=== PATIENT | female | born 1960 | race Caucasian/White ===

== ENCOUNTER → 2017-02-13 | Outpatient (CLI) | payer BC ==
--- NOTE | 2017-02-16 10:22 | MM ---
Reason for exam: screening (asymptomatic). Last mammogram was performed 1 year and 6 months ago. History: Patient is postmenopausal. Physical Findings: A clinical breast exam by your physician is recommended on an annual basis and results should be correlated with mammographic findings. MG Screening Mammo w CAD Bilateral CC and MLO view(s) were taken. Prior study comparison: August 01, 2015, bilateral MG screening mammo w CAD. May 11, 2013, CAD bilateral diagnostic mammogram. The breast tissue is heterogeneously dense. This may lower the sensitivity of mammography. Benign calcifications bilateral breast. There is chronic nodularity bilaterally. There is no dominant lesion. No significant changes when compared with prior studies. ASSESSMENT: Benign, BI-RAD 2 RECOMMENDATION: Routine screening mammogram of both breasts in 1 year.
== END | disposition home or self-care (01) ==
LOC: RADMAMWWP 12:14
PROVIDERS: ATTEND Family Medicine
DX: Z12.31 Encounter for screening mammogram for malignant neoplasm of breast (principal)

== ENCOUNTER → 2018-06-29 | Outpatient (CLI) | payer BC ==
--- NOTE | 2018-06-29 15:11 | BD ---
EXAMINATION TYPE: Axial Bone Density DATE OF EXAM: 06/29/2018 COMPARISON: 2011 CLINICAL HISTORY: Osteopenia and 89.9 Height: 5'2 Weight: 184 FRAX RISK QUESTIONS: Secondary Osteoporosis: 3. Menopause before 45: y RISK FACTORS HISTORY OF: Postmenopausal woman: y MEDICATIONS: Thyroid Medications: Which medication: Levothyroxine How Lon years Additional Medications: cholesterols Additional History: EXAM MEASUREMENTS: Bone mineral densitometry was performed using the N-1-1 System. Bone mineral density as measured about the Lumbar spine is: ----- L1-L4(G/cm2): 1.061 T Score Values are as follows: ----- L2: -1.6 ----- L3: -0.7 ----- L4: -1.2 ----- L1-L4: -1.0 Bone mineral density has: Decreased -9.4% since study of: 05/03/2012 Bone mineral density about the R hip (g/cm2): 0.898 Bone mineral density about the L hip (g/cm2): 0.969 T Score values are as follows: -----R Neck: -1.0 -----L Neck: -0.5 -----R Total:0.1 -----L Total: 0.5 Bone mineral density has: Increased 3.8% since study of: 05/03/2012 IMPRESSION: Osteopenia (T Score between -2.5 and -1). There is slightly increased risk of fracture and the patient may be considered for treatment. Re-Screen 2-5 years. NOTE: T-SCORE=SD OF THE YOUNG ADULT MEAN.
--- NOTE | 2018-06-30 12:02 | MM ---
Reason for exam: screening (asymptomatic). Last mammogram was performed 1 year and 4 months ago. History: Patient is postmenopausal. Physical Findings: A clinical breast exam by your physician is recommended on an annual basis and results should be correlated with mammographic findings. MG Screening Mammo w CAD Bilateral CC and MLO view(s) were taken. Prior study comparison: February 13, 2017, bilateral MG screening mammo w CAD. August 01, 2015, bilateral MG screening mammo w CAD. The breast tissue is heterogeneously dense. This may lower the sensitivity of mammography. There are benign appearing regional, round calcifications bilaterally. There is no discrete abnormality. ASSESSMENT: Benign, BI-RAD 2 RECOMMENDATION: Routine screening mammogram of both breasts in 1 year.
== END ==
LOC: RADMAMWWP 06:40
PROVIDERS: ATTEND Obstetrics & Gynecology
DX: Z12.31 Encounter for screening mammogram for malignant neoplasm of breast (principal); M85.80 Other specified disorders of bone density and structure, unspecified site
CPT/HCPCS: 77067; 77080

== ENCOUNTER → 2019-06-24 | Outpatient (CLI) | payer OTHER ==
--- NOTE | 2019-06-24 10:19 | XR ---
EXAMINATION TYPE: XR cervical spine comp DATE OF EXAM: 06/24/2019 TECHNIQUE: Frontal, lateral, oblique, swimmers, and open mouth view of the cervical spine are obtaine d. HISTORY: M54.81 COMPARISON: CT neck from 2009 FINDINGS: The cervical spine is visualized in its entirety from C1 thru the mid C7 level, it is sati sfactory in alignment without evidence of acute fracture or dislocation. Suboptimal evaluation of C7 -T1 disc space despite attempted swimmer's view due to osseous overlap. The pre-vertebral soft tissue appears within normal limits. The C1-C2 articulation is within normal limits on the open mouth view . Visualized vertebral body heights and disc space heights are maintained. The oblique images are wi thin normal limits. Overlying soft tissue is unremarkable. IMPRESSION: As above.
== END | disposition home or self-care (01) ==
LOC: RADXRMAIN 09:54
PROVIDERS: ATTEND Family Medicine
DX: M54.81 Occipital neuralgia (principal); R20.2 Paresthesia of skin
CPT/HCPCS: 72050

== ENCOUNTER → 2020-09-12 | Outpatient (CLI) | payer OTHER ==
--- NOTE | 2020-09-12 15:58 | BD ---
EXAMINATION TYPE: Axial Bone Density DATE OF EXAM: 09/12/2020 COMPARISON: NONE CLINICAL HISTORY: M 89.9, disorder of bone Height: 5 FT 2 IN Weight: 179 FRAX RISK QUESTIONS: Alcohol (3 or more units per day): NO Family History (Parent hip fracture): NO Glucocorticoids (More than 3mos): NO (Ex: prednisone, prednisolone, methylprednisolone, dexamethasone, and hydrocortisone). History of Fracture in Adulthood: NO Secondary Osteoporosis: 1. Type 1 Diabetes: NO 2. Hyperthyroidism: NO 3. Menopause before 45: AGE 47 4. Malnutrition: NO 5. Chronic liver disease: NO Rheumatoid Arthritis: NO Current Tobacco Use: NO RISK FACTORS HISTORY OF: Family History of Osteoporosis: NO Active: YES Diet low in dairy products/other sources of calcium: NO Postmenopausal woman: AGE 47 Take estrogen and/or progesterone medications: NONE Lost more than 2 inches in height since high school: NO MEDICATIONS: Thyroid Medications: YES Which medication: LEVOTHYROXINE How Lon PLUS YEARS Additional Medications: LEVOTHYROXINE,CHOLESTEROL MEDS, VITAMINS Additional History: EXAM MEASUREMENTS: Bone mineral densitometry was performed using the [employer] System. Bone mineral density as measured about the Lumbar spine is: ----- L1-L4(G/cm2): 1.046 T Score Values are as follows: ----- L2: -1.7 ----- L3: -0.8 ----- L4: -1.2 ----- L1-L4: -1.1 Bone mineral density has: DECREASED -0.9 % since study of: 2017 Bone mineral density about the R hip (g/cm2): 0.882 Bone mineral density about the L hip (g/cm2): 0.915 T Score values are as follows: -----R Neck: -1.1 -----L Neck: -0.9 -----R Total: 0.0 -----L Total: 0.4 Bone mineral density has: DECREASED -1.4 % since study of: 2017 IMPRESSION: Osteopenia (T Score between -2.5 and -1). There is slightly increased risk of fracture and the patient may be considered for treatment. Re-Screen 2-5 years. NOTE: T-SCORE=SD OF THE YOUNG ADULT MEAN.
--- NOTE | 2020-09-14 10:32 | MM ---
Reason for exam: screening (asymptomatic). Last mammogram was performed 2 years and 2 months ago. History: Patient is postmenopausal. Physical Findings: A clinical breast exam by your physician is recommended on an annual basis and results should be correlated with mammographic findings. MG Screening Mammo w CAD Bilateral CC and MLO view(s) were taken. XCCL view(s) were taken of the left breast. Prior study comparison: June 29, 2018, bilateral MG screening mammo w CAD. February 13, 2017, bilateral MG screening mammo w CAD. The breast tissue is heterogeneously dense. This may lower the sensitivity of mammography. Diffuse punctate calcifications bilaterally redemonstrated. No significant changes when compared with prior studies. ASSESSMENT: Benign, BI-RAD 2 RECOMMENDATION: Routine screening mammogram of both breasts in 1 year.
== END | disposition home or self-care (01) ==
LOC: RADMAMWWP 14:37
PROVIDERS: ATTEND Family Medicine
DX: Z12.31 Encounter for screening mammogram for malignant neoplasm of breast (principal); M85.80 Other specified disorders of bone density and structure, unspecified site
CPT/HCPCS: 77067; 77080

== ENCOUNTER → 2021-11-27 | Outpatient (CLI) | payer OTHER ==
--- NOTE | 2021-11-28 10:49 | MM ---
Reason for exam: screening (asymptomatic). Last mammogram was performed 1 year and 2 months ago. History: Patient is postmenopausal. Physical Findings: A clinical breast exam by your physician is recommended on an annual basis and results should be correlated with mammographic findings. MG 3D Screening Mammo W/Cad Bilateral CC and MLO view(s) were taken. Prior study comparison: September 12, 2020, bilateral MG screening mammo w CAD. June 29, 2018, bilateral MG screening mammo w CAD. Finding: There are typically benign, increased number of fine, diffuse/scattered calcifications in both breasts. Previous mammotome biopsy in the right breast. No significant changes in finding since September 12, 2020 and June 29, 2018. ASSESSMENT: Benign, BI-RAD 2 RECOMMENDATION: Routine screening mammogram of both breasts in 1 year.
== END | disposition home or self-care (01) ==
LOC: RADMAMWWP 07:16
PROVIDERS: ATTEND Family Medicine
DX: Z12.31 Encounter for screening mammogram for malignant neoplasm of breast (principal); Z78.0 Asymptomatic menopausal state
CPT/HCPCS: 77063; 77067

== ENCOUNTER → 2023-06-18 | Outpatient (CLI) | payer OTHER ==
--- NOTE | 2023-06-18 19:50 | BD ---
EXAMINATION TYPE: Axial Bone Density DATE OF EXAM: 06/18/2023 CLINICAL HISTORY: 63 years old Female. ICD-10 CODE: M89.9DISORDER OF BONE, UNSPECIFI Height: 61.4 Weight: 180 FRAX RISK QUESTIONS: 3. Menopause before 45: at 47. RISK FACTORS HISTORY OF: Postmenopausal woman: at 47 yrs old. Hyperparathyroidism: no Adrenal Insufficiency: no MEDICATIONS: Thyroid Medications: yes, synthroid product for 15 yrs Additional Medications: statin for cholesterol, vitamins, thyroid, Additional History: cholesterol, thyroid, EXAM MEASUREMENTS: Bone mineral densitometry was performed using the [employer] System. Bone mineral density as measured about the Lumbar spine is: ----- L1-L4(G/cm2): 1.039 T Score Values are as follows: ----- L1: -0.9 ----- L2: -1.3 ----- L3: -1.0 ----- L4: -1.6 ----- L1-L4: -1.2 Z Score Values are as follows: ----- L1: -0.2 ----- L2: -0.6 ----- L3: -0.3 ----- L4: -0.9 ----- L1-L4: -0.5 Bone mineral density has: Decreased -0.7% since study of: 09.12.2020 Bone mineral density about the R hip (g/cm2): 1.000 Bone mineral density about the L hip (g/cm2): 1.069 T Score values are as follows: -----R Neck: -0.8 -----L Neck: -1.0 -----R Total: -0.1 -----L Total: 0.5 Z Score values are as follows: -----R Neck: 0.1 -----L Neck: 0.0 -----R Total: 0.5 -----L Total: 1.1 Bone mineral density has: Increased 0.4% since study of: 09.12.2020 FRAX%s: The graph provided illustrates a 6.9% chance for a major osteoporotic fx and a 0.4% chance fo r the hips probability for fx in 10 years time. IMPRESSION: Osteopenia (T Score between -2.5 and -1). There is slightly increased risk of fracture and the patient may be considered for treatment. Re-Screen 2-5 years. NOTE: T-SCORE=SD OF THE YOUNG ADULT MEAN.
--- NOTE | 2023-06-19 08:54 | MM ---
Reason for Exam: Screening (asymptomatic). Last mammogram was performed 1 year(s) and 7 month(s) ago. Patient History: Menarche at age 15. First Full-Term at age 23. Postmenopausal. Risk Values: Nataliia 5 year model risk: 1.3%. NCI Lifetime model risk: 6.4%. Prior Study Comparison: 06/29/2018 Bilateral Screening Mammogram, [facility]. 09/12/2020 Bilateral Screening Mammogram, [facility]. 11/27/2021 Bilateral Screening Mammogram, [facility]. Tissue Density: The breast tissue is heterogeneously dense. This may lower the sensitivity of mammography. Findings: Analyzed By CAD. There is no suspicious group of microcalcifications or new suspicious mass. Benign-appearing calcifications bilaterally. Overall Assessment: Benign, BI-RAD 2 Management: Screening Mammogram of both breasts in [address] [facility] will attempt to contact patient to return for supplemental views and ultrasound if indicated. Patient should continue monthly self-breast exams. A clinical breast exam by your physician is recommended on an annual basis. This exam should not preclude additional follow-up of suspicious palpable abnormalities. Note on Nataliia scores and lifetime risk: 1. A Nataliia score greater than 3% is considered moderate risk. If this is the case, consider specialist referral to assess eligibility for a risk reducing agent. 2. If overall lifetime risk for the development of breast cancer is 20% or higher, the patient may qualify for future screening with alternating mammogram and breast MRI. Electronically signed and approved by: Piero Patel DO
== END | disposition home or self-care (01) ==
LOC: RADMAMWWP 09:35
PROVIDERS: ATTEND Family Medicine
DX: Z12.31 Encounter for screening mammogram for malignant neoplasm of breast (principal); M89.9 Disorder of bone, unspecified; Z78.0 Asymptomatic menopausal state
CPT/HCPCS: 77067; 77080

== ENCOUNTER → 2024-11-11 | Outpatient (CLI) | payer BC ==
--- NOTE | 2024-11-11 09:33 | MM ---
Reason for Exam: Screening (asymptomatic). Last mammogram was performed 1 year(s) and 4 month(s) ago. Patient History: Menarche at age 15. First Full-Term at age 23. Postmenopausal. Risk Values: Nataliia 5 year model risk: 1.4%. NCI Lifetime model risk: 6.2%. Prior Study Comparison: 09/12/2020 Bilateral Screening Mammogram, [facility]. 11/27/2021 Bilateral Screening Mammogram, [facility]. 06/18/2023 Bilateral MG screening mammo w CAD, [facility]. Tissue Density: The breasts are heterogeneously dense, which may obscure small masses. Analyzed By CAD. Overall Assessment: Negative, BI-RAD 1 Management: Screening Mammogram of both breasts in 1 year. Electronically signed and approved by: Piero Patel DO
== END | disposition home or self-care (01) ==
LOC: RADMAMWWP 07:43
PROVIDERS: ATTEND Family Medicine
DX: Z12.31 Encounter for screening mammogram for malignant neoplasm of breast (principal); R92.333 Mammographic heterogeneous density, bilateral breasts; Z78.0 Asymptomatic menopausal state
CPT/HCPCS: 77067